=== PATIENT | male | born 1965 | race Caucasian/White ===

== ENCOUNTER 2017-06-27 16:16 | Emergency (ER) | payer SELFPAY ==
[~2017-06-27] VITALS: Ht 185.4 cm; Wt 94.5 kg
[2017-06-27 16:18] VITALS: BP 112/76
[2017-06-27] MEDS ORDERED: [UNRECOGNIZED DRUG - REMARK] PO (16:28)
== END 2017-06-27 19:48 | disposition left against medical advice (07) ==
LOC: EMS 16:20
DX: Z53.21 Procedure and treatment not carried out due to patient leaving prior to being seen by health care provider (principal)